=== PATIENT | male | born 1960 | race Caucasian/White ===

== ENCOUNTER 2017-04-07 10:04 | Emergency (ER) | payer OTHER ==
[2017-04-07] MEDS ORDERED: LISINOPRIL 20 MG TABLET PO ONE (10:34)
[2017-04-07] MEDS ORDERED: LISINOPRIL 10 MG TABLET PO ONE (10:37)
[2017-04-07] MEDS ORDERED: HYDROMORPHONE HCL 1 MG/ML CPJ IM ONE (10:41)
[2017-04-07] MEDS ORDERED: PROMETHAZINE HCL 25 MG/ML VIAL IM ONE (10:41)
--- NOTE | 2017-04-07 10:41 | Emergency Department Record ---
History of Present Illness - General Chief complaint: Extremity Problem Stated complaint: LEG NUMBNESS Time Seen by Provider: 04/07/17 10:11 Mode of Arrival: Ambulatory - History of Present Illness Initial comments: low back pain and radiation into the right leg. this started 32 hours ago and it wake him up with pain in his thigh. No urination problems and he did have a BM yesterday. Previous back strain aug 2016 and he had physical therapy and he also has osteo arthritis of back. Prednisone helped his pain in the recent past when bronchitis treated with prednisone. Patient states he did lifing 2 days ago. Onset/Timin -: Days(s) Location: Right, Lower Leg, Thigh History of Same: Yes Radiation: None Severity scale (1-10): 8 Quality: Aching Consistency: Constant - Related Data Home Medications Medication Instructions Recorded Confirmed Last Taken Aspirin [Adult Low Dose Aspirin EC] 81 mg PO DAILY 04/07/17 04/07/17 1 Day Ago ~04/06/17 Lisinopril 20 mg PO DAILY 04/07/17 04/07/17 1 Day Ago ~04/06/17 Previous Rx's Medication Instructions Recorded Cyclobenzaprine HCl [Flexeril] 10 mg PO TID #30 tablet 04/07/17 Hydrocodone/Acetaminophen [[place] 1 each PO Q6HR #20 tablet 04/07/17 5-325 Tablet] Allergies Allergy/AdvReac Type Severity Reaction Status Date / Time benzonatate Allergy HYPERSENSIT Verified 04/07/17 10:28 [From Frannie Ulrich] IVITY Travel Screening - Travel/Exposure Within Last 30 Days Have you traveled within the last 30 days?: No - Travel/Exposure Within Last Year Have you traveled outside the [place] in the last year?: No - Additonal Travel Details Have you been exposed to anyone with a communicable illness?: No - Travel Symptoms Symptom Screening: None Review of Systems Reviewed: No additional complaints except as noted below Constitutional: Reports: As per HPI. Denies: Chills, Fever, Malaise, Night sweats, Weakness, Weight change Eyes: Reports: As per HPI. Denies: Eye discharge, Eye pain, Photophobia, Vision change ENT: Reports: As per HPI. Denies: Congestion, Dental pain, Ear pain, Epistaxis , Hearing loss, Throat pain Respiratory: Reports: As per HPI. Denies: Cough, Dyspnea, Hemoptysis, Stridor, Wheezes Cardiovascular: Reports: As per HPI. Denies: Arrhythmia, Chest pain, Dyspnea on exertion, Edema, Murmurs, Orthopnea, Palpitations, Paroxysmal nocturnal dyspnea, Rheumatic Fever, Syncope Endocrine: Reports: As per HPI. Denies: Fatigue, Heat or cold intolerance, Polydipsia, Polyuria Gastrointestinal: Reports: As per HPI. Denies: Abdominal pain, Constipation, Diarrhea, Hematemesis, Hematochezia, Melena, Nausea, Vomiting Genitourinary: Reports: As per HPI. Denies: Dysuria, Frequency, Hematuria, Incontinence, Retention, Testicular pain, Testicular mass, Urgency Musculoskeletal: Reports: As per HPI, Back pain. Denies: Arthralgia, Gout, Joint swelling, Myalgia, Neck pain Skin: Reports: As per HPI. Denies: Bruising, Change in color, Change in hair/ nails, Lesions, Pruritus, Rash Neurological: Reports: As per HPI. Denies: Abnormal gait, Confusion, Headache, Numbness, Paresthesias, Seizure, Tingling, Tremors, Vertigo, Weakness Psychiatric: Reports: As per HPI. Denies: Anxiety, Auditory hallucinations, Depression, Homicidal thoughts, Suicidal thoughts, Visual hallucinations Hematological/Lymphatic: Reports: As per HPI. 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 negative: External canal tenderness Nasal Exam: Normal inspection. negative: Discharge, Sinus tenderness Mouth exam: Normal external inspection, Tongue normal Teeth exam: Normal inspection. negative: Dental caries Throat exam: Normal inspection. negative: Tonsillar erythema, Tonsillar exudate - Neck Neck exam: Normal inspection, Full ROM. negative: Tenderness - Respiratory Respiratory exam: Normal lung sounds bilaterally. negative: Respiratory distress - Cardiovascular Cardiovascular Exam: Regular rate, Normal rhythm, Normal heart sounds - GI/Abdominal GI/Abdominal exam: Soft, Normal bowel sounds. negative: Tenderness - Rectal Rectal exam: Deferred - exam: Deferred - Extremities Extremities exam: Normal inspection, Full ROM, Normal capillary refill. negative: Tenderness - Back Back exam: Reports: Normal inspection, Full ROM, Muscle spasm, Tenderness ( radiation down right leg). Denies: Rash noted - Neurological Neurological exam: Alert, Normal gait, Oriented X3, Reflexes normal - Psychiatric Psychiatric exam: Normal affect, Normal mood - Skin Skin exam: Dry, Intact, Normal color, Warm Course Vital Signs 04/07/17 10:20 Temperature 98.7 F Pulse Rate 77 Respiratory 16 Rate Blood Pressure 200/115 Pulse Ox 96 Disposition Clinical Impression: Lumbar strain Qualifiers: Encounter type: initial encounter Qualified Code(s): S39.012A - Strain of muscle, fascia and tendon of lower back, initial encounter Disposition: Home, Self-Care Condition: (1) Good Instructions: Low Back Strain (ED) Additional Instructions: follow up with family in 5 days. heat to back three times a day Prescriptions: Hydrocodone/Acetaminophen [[place] 5-325 Tablet] 1 each PO Q6HR #20 tablet Cyclobenzaprine HCl [Flexeril] 10 mg PO TID #30 tablet Forms: Patient Portal Access Time of Disposition: 11:43
== END 2017-04-07 12:00 | disposition home or self-care (01) ==
LOC: ER 10:04
DX: S39.012A Strain of muscle, fascia and tendon of lower back, initial encounter (principal); X50.9XXA Other and unspecified overexertion or strenuous movements or postures, initial encounter; I10 Essential (primary) hypertension; Z87.891 Personal history of nicotine dependence
CPT/HCPCS: 99283 ×2; 96372; J3490; J1170; J2550

== ENCOUNTER 2017-07-26 07:43 | Day surgery (SDC) | payer OTHER ==
[2017-07-26] MEDS ORDERED: PROPOFOL 10 MG/ML VIAL IV ONE (14:00)
[2017-07-26] MEDS ORDERED: LIDOCAINE 2% MDV (20MG/ML) 20ML VIAL IV ONE (14:00)
[2017-07-26] MEDS ORDERED: MIDAZOLAM HCL 2MG/2ML VIAL IV ONE (14:00)
--- NOTE | 2017-07-31 17:31 | Operative Note ---
DATE OF SURGERY: 07/26/2017 OPERATION: COLONOSCOPY with cold forceps polypectomy x2. PREOPERATIVE DIAGNOSIS: Personal history of colon polyps. POSTOPERATIVE DIAGNOSIS: Cecal polyps x2. ESTIMATED BLOOD LOSS: Minimal. SPECIMENS: Cecal polyps. COMPLICATIONS: None apparent. PREPARATION QUALITY: Good. PROCEDURE: After informed consent was obtained from the patient, he was placed in the left lateral decubitus position in the endoscopy suite, sedated and monitored by the department of anesthesia. Digital rectal examination was unremarkable. A well-lubricated [id number] colonoscope was inserted into the rectum and advanced to the cecum. Preparation quality was good. The cecum revealed 2 diminutive polypoid abnormalities which were removed with a cold forceps. Minimal bleeding was noted at the site. The remainder of the cecum, ascending colon, transverse colon, descending colon, and sigmoid colon were inspected. No polyps, mass lesions, inflammation, or other abnormalities were identified. The rectum was unremarkable in forward and in J-turn views. The endoscope was straightened, the rectal ampulla deflated, and the endoscope was removed. RECOMMENDATIONS: The patient should resume his medications and diet. He will require repeat exam in 5 years. As always, thank you for allowing me to participate in the healthcare of your patients. CC: Dr. Walter REYES
== END 2017-07-26 09:43 | disposition home or self-care (01) ==
LOC: HOP 07:43
PROVIDERS: ATTEND Internal Medicine Gastroenterology
DX: Z12.11 Encounter for screening for malignant neoplasm of colon (principal); Z86.010 Personal history of colon polyps; D12.0 Benign neoplasm of cecum; I10 Essential (primary) hypertension

== ENCOUNTER 2017-10-22 12:03 | Day surgery (SDC) | payer OTHER ==
[~2017-10-22 12:03] MED LIST: ACETAMINOPHEN 1,000 MG/100 ML BTL IV ONE; CEFAZOLIN 2 Gram 2 GM/50 ML BAG IVPB ONE
[2017-10-22] MEDS ORDERED: BUPIVACAINE 0.75% W/EPI MPF 30ML VIAL IVP ONE (12:04)
[2017-10-22] MEDS ORDERED: SEVOFLURANE 250 ML INH ONE (12:04)
[2017-10-22] MEDS ORDERED: KETOROLAC 30 MG/ML VIAL IVP ONE (12:04)
[2017-10-22] MEDS ORDERED: FENTANYL PF 100MCG/2ML VIAL IV ONE (12:04)
[2017-10-22] MEDS ORDERED: PROPOFOL 10 MG/ML VIAL IV ONE (12:04)
[2017-10-22] MEDS ORDERED: LIDOCAINE 2% MDV (20MG/ML) 20ML VIAL IV ONE (12:04)
--- NOTE | 2017-10-23 13:20 | Operative Note ---
DATE OF SURGERY: 10/22/2017 Surgeon: Preston Marie DO PREOPERATIVE DIAGNOSES: 1. Left arm mass. 2. Abdominal wall mass. 3. Right groin mass. POSTOPERATIVE DIAGNOSES: 1. Left arm mass. 2. Abdominal wall mass. 3. Right groin mass. OPERATION: Excision of left arm, abdominal wall, and right groin masses. Indication: The patient is a 57-year-old male who presented to the clinic with pain in his abdomen. A CT scan was done which did show a 3-4 cm enlarged lymph node in the right inguinal region. On exam, he had a very large cyst size, what appeared to be a lipoma in his mid abdomen as well as left arm. Therefore, we did discuss excision. Risks and benefits of each were discussed. Risks include bleeding, infection, recurrence, lymphocele formation, need for drain placement. He understood this fully. PROCEDURE: Therefore, he was brought to the operating room and placed in a supine position. General anesthesia was administered per the department of anesthesia. The patient's left arm, abdomen, and groin were prepped and draped in the usual sterile fashion. Starting with the patient's abdomen, this area was anesthetized with a total of 8 mL of 0.25% Sensorcaine with epinephrine. A 9 cm incision was made. This was carried down to the capsule of a very large lipoma. This measured about 10 x 15 cm into the subcu. This was excised. The wound was closed with 3-0 and 4-0 Vicryl. A drain was placed and brought out through a separate stab incision due to the large cavity and seroma formation. Attention was now turned to the left arm where the area was anesthetized with a total of 3 mL of 25% Sensorcaine with epinephrine. An incision was made over the mass, carried down to the capsule of a 2 cm lipoma. This was then excised and passed off the field. This wound was closed with 4-0 Vicryl. We did not mix instruments. Attention now turned to the right groin where the area over the mass was anesthetized with a total of 5 mL of 25% Sensorcaine with epinephrine. An incision was made and carried down through the subcutaneous tissue to a very large lymph node. This did measure about 4 x 4 cm in the subcu. The pedicles were ligated and tied off and this was sent for flow cytometry. This wound was closed with 3-0 and 4-0 Vicryl as well as Dermabond and 3-0 nylon. The patient was taken to the recovery room in satisfactory condition. Pathology pending. [facility]
== END 2017-10-22 14:50 | disposition home or self-care (01) ==
LOC: SUR 12:03
PROVIDERS: ATTEND Surgery
DX: D17.1 Benign lipomatous neoplasm of skin and subcutaneous tissue of trunk (principal); D17.22 Benign lipomatous neoplasm of skin and subcutaneous tissue of left arm; C7B.01 Secondary carcinoid tumors of distant lymph nodes
CPT/HCPCS: 11406; 12035; 11403; 38500; 00400; J1885; J3010; J0690; J3490

== ENCOUNTER 2017-11-05 09:42 | Day surgery (SDC) | payer OTHER ==
[~2017-11-05 09:42] MED LIST changes: -ACETAMINOPHEN 1,000 MG/100 ML BTL IV ONE
[2017-11-05] MEDS ORDERED: BUPIVACAINE 0.75% W/EPI MPF 30ML VIAL IVP ONE (09:43)
[2017-11-05] MEDS ORDERED: MIDAZOLAM HCL 2MG/2ML VIAL IV ONE (09:43)
[2017-11-05] MEDS ORDERED: FENTANYL PF 100MCG/2ML VIAL IV ONE (09:43)
[2017-11-05] MEDS ORDERED: PROPOFOL 10 MG/ML VIAL IV ONE (09:43)
[2017-11-05] MEDS ORDERED: LIDOCAINE 2% MDV (20MG/ML) 20ML VIAL IV ONE (09:43)
[2017-11-05] MEDS ORDERED: HYDROCODONE/APAP 5/325MG TABLET PO ONE (09:43)
--- NOTE | 2017-11-06 09:50 | Operative Note ---
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 OPERATION: Excision of back mass. Indication: The patient is a 57-year-old male who underwent a recent excision of lymph node mass. This was a 3.1 cm mass in his groin which came back consistent with metastatic neuroendocrine carcinoma. I did speak with the pathologist who felt this could be skin origin. He had no lesions on his lower extremity. He has had a dark purple-black 6 mm lesion on his back for quite some time. I did have a discussion with dermatology, felt this would need to be excised. He does have a followup oncology appointment this week. Therefore, consent was signed and questions answered. PROCEDURE: He was taken to the operating room and placed in a supine position. Local IV sedation was given per the department of anesthesia. The patient was then rotated into the right lateral position. His back was prepped and draped in the sterile fashion. The area around the lesion on his back was anesthetized with a total of 10 mL of 0.25% Sensorcaine with epinephrine. Using 1 cm margins, elliptical incision was made around this mass. This was carried down to the subcutaneous tissue with cautery. We did take this down to the fascia. This was then passed off the field. The wound was then undermined and closed with 2-0 Vicryl and 2-0 nylon. He did tolerate the procedure well. Total size was 5 x 3 cm down to the fascia. Final pathology pending. [facility]
== END 2017-11-05 12:10 | disposition home or self-care (01) ==
LOC: SUR 09:42
PROVIDERS: ATTEND Surgery
DX: D18.01 Hemangioma of skin and subcutaneous tissue (principal); C7B.8 Other secondary neuroendocrine tumors
CPT/HCPCS: 11406; 12032; 00300; J3010; J0690; J3490

== ENCOUNTER 2017-12-10 06:48 | Day surgery (SDC) | payer OTHER ==
[~2017-12-10 06:48] MED LIST changes: +ACETAMINOPHEN 1,000 MG/100 ML BTL IV ONE
[2017-12-10] MEDS ORDERED: HEPARIN SODIUM FLUSH 100 UNITS/ML SYR 5ML IVP ONE (06:49)
[2017-12-10] MEDS ORDERED: FENTANYL PF 100MCG/2ML VIAL IV ONE (06:49)
[2017-12-10] MEDS ORDERED: LIDOCAINE 2% MDV (20MG/ML) 20ML VIAL IV ONE (06:49)
[2017-12-10] MEDS ORDERED: HYDROCODONE/APAP 5/325MG TABLET PO ONE (06:49)
[2017-12-10] MEDS ORDERED: MIDAZOLAM HCL 2MG/2ML VIAL IV ONE (06:49)
[2017-12-10] MEDS ORDERED: PROPOFOL 10 MG/ML VIAL IV ONE (06:49)
--- NOTE | 2017-12-10 09:28 | RADIOLOGY REPORT ---
EXAM: CHEST, SINGLE VIEW HISTORY: POST OHLST-L-YCZC INSERTION. TECHNIQUE: AP upright potable view of the chest was obtained. Comparison: None. FINDINGS: A venous access port has been placed on the left with the catheter extending down into the region of the lower SVC. No pneumothorax evident. No pleural effusion evident. Postop left shoulder arthroplasty and advanced degenerative arthritis right shoulder. The heart size is at about the upper limits of normal allowing for the AP positioning. No pleural effusion evident. IMPRESSION: VENOUS ACCESS PORT IN PLACE WITH NO PNEUMOTHORAX EVIDENT. JOB NUMBER: [id number] MTDD
--- NOTE | 2017-12-12 12:40 | Operative Note ---
DATE OF SURGERY: 12/10/2017 Surgeon: Preston Marie DO PREOPERATIVE DIAGNOSIS: [place] cell cancer. POSTOPERATIVE DIAGNOSIS: [place] cell cancer. OPERATION: Infusaport with fluoroscopy. Indication: The patient is a 57-year-old male with a recent unfortunate diagnosis of metastatic [place] cell cancer. We did discuss Infusaport placement; risks, benefits, and alternatives. Risks include bleeding, infection, 1% chance of a pneumothorax. He understood this fully. PROCEDURE: Therefore, after consent was signed and questions answered, the patient was taken to the operating room and placed in a supine position. Local IV sedation was given per the department of anesthesia. The patient's arms were tucked to the side. His chest was prepped and draped in the usual fashion. A roll was placed. At this time, adequate timeout was performed. He did receive preoperative antibiotics. At this time, local IV sedation was given per department of anesthesia. He was rotated into Trendelenburg position. At this time, the left clavicular region was anesthetized with a total of 8 mL of 0.25% Sensorcaine with epinephrine and an 18-gauge Cook finder needle was used to cannulate the left subclavian vein on the first attempt. Through this, a guidewire was inserted under direct fluoroscopic guidance. At this time, a pocket was created inferior to this and a 9.6 Chinese port was assembled. Trimmed to size. This was placed in the pocket. At this point, a dilator and Peel-Away sheath were fed over the wire. The wire and dilator were removed. The catheter was fed down the hollow lumen of the Peel-Away sheath. This was noted to be in adequate position per fluoroscopy. This aspirated and flushed well. This was sutured to the pectoralis fascia with 2-0 Vicryl. The skin was closed with 4-0 Vicryl. He was taken to the recovery room in satisfactory condition. FINDINGS AT THE TIME OF SURGERY: Status post left subclavian Infusaport placement. Final chest x-ray pending. CC: Cristopher REYES
== END 2017-12-10 09:30 | disposition home or self-care (01) ==
LOC: SUR 06:48
PROVIDERS: ATTEND Surgery
DX: Z45.2 Encounter for adjustment and management of vascular access device (principal); C4A.9 Merkel cell carcinoma, unspecified; C7B.01 Secondary carcinoid tumors of distant lymph nodes; I10 Essential (primary) hypertension
CPT/HCPCS: 71045; 77001